=== PATIENT | male | born 2000 | race African-American/Black ===

== ENCOUNTER 2021-11-09 23:01 | Emergency (ER) | payer BC, SELFPAY ==
--- NOTE | ~2021-11-09 | CT_ITS ---
EXAMINATION: CT BRAIN W/O DATE: 11/10/2021 00:04 INDICATION: Status post fall with vomiting and nausea TECHNIQUE: Computed tomography (CT) of the head was performed without intravenous contrast. The dose- length product was 605.33 mGy-cm. Automated exposure control and iterative reconstruction technique w ere employed. COMPARISON: No prior studies for comparison. FINDINGS: Normal brain parenchymal volume for age. Normal corrales-white differentiation. No acute intrac ranial hemorrhage, infarction, mass or mass effect. Note is made of detector artifact. No ventriculomegaly or midline shift. Midline sagittal images demonstrate a normal corpus callosum, c raniovertebral junction and sella turcica. Basilar cisterns are patent. Paranasal sinuses and mastoids are pneumatized. No depressed skull fractures. IMPRESSION: 1. No acute intracranial abnormality. Reviewed, dictated and finalized at location A.
[2021-11-09 23:12] VITALS: BP 129/77; PULSE 79; RESP 18; TEMP 36.8; O2SAT 99
--- NOTE | 2021-11-09 23:28 | ED.GENADULT ---
HPI - General Adult General Chief complaint: Head Injury <FLOR Whitfield Last Filed: 11/10/21 01:45> Stated complaint: concussion <FLOR Whitfield Last Filed: 11/10/21 01:45> Time Seen by Provider: 11/09/21 23:13 <FLOR Whitfield Last Filed: 11/10/21 01:45> Source: patient <FLOR Whitfield Last Filed: 11/10/21 01:45> Mode of arrival: ambulatory <FLOR Whitfield Last Filed: 11/10/21 01:45> Limitations: no limitations <FLOR Whitfield Last Filed: 11/10/21 01:45> History of Present Illness HPI narrative: Patient is a 20-year-old male who presents the ED with report of headache. Patient reports he slipped and hit his head yesterday. He is unable to entirely recount how the fall occurred, but he does not believe he lost consciousness. Brother at bedside reports patient's girlfriend witnessed fall and they monitored him throughout the night last night. Patient has had a headache since the incident. He does have a history of migraines since he was a child. He usually takes Excedrin Migraine for these which alleviates his typical migraines. He did take this 2 hours prior to arrival with some relief of his current pain. He also reports having photophobia and phonophobia, but no vision changes, blurry vision, double vision. He did develop nausea and had several episodes of vomiting last night. He also reported having an episode of vomiting tonight, which prompted him to come to the ED. Patient denies any fever, confusion, weakness, chest pain, abdominal pain, SOB. <FLOR Whitfield Last Filed: 11/10/21 01:45> Related Data Home medications: Home Medications Medication Instructions Recorded Confirmed No Home Medications 11/10/21 11/10/21 <FLOR Whitfield Last Filed: 11/10/21 01:45> Allergies/adverse reactions: Allergies Allergy/AdvReac Type Severity Reaction Status Date / Time No Known Allergies Allergy Verified 11/10/21 00:09 <Marilin Larios PA-C - Last Filed: 11/10/21 01:45> Review of Systems Review of Systems: CONSTITUTIONAL: Denies fever, chills, or sweats. EYES: Reports photophobia. Denies visual changes - blurry, double. EARS: Reports phonophobia. CARDIOVASCULAR: Denies chest pain. RESPIRATORY: Denies cough or dyspnea. GASTROINTESTINAL: Reports nausea, vomiting. Denies abdominal pain or diarrhea. MUSCULOSKELETAL: Denies back pain, joint pain, or myalgia. NEUROLOGIC: Reports head injury, headache. Denies headache, numbness, confusion, or weakness. <Marilin Larios PA-C - Last Filed: 11/10/21 01:45> All systems reviewed & are unremarkable except as noted in HPI and below <Marilin Larios PA-C - Last Filed: 11/10/21 01:45> PMFSH Past Medical History Medical History: Medical History (Updated 11/10/21 @ 01:07 by Marilin Larios PA-C) Migraine <Marilin Larios PA-C - Last Filed: 11/10/21 01:45> Surgical History Surgical History: Surgical History (Updated 11/10/21 @ 00:49 by Marilin Larios PA-C) No pertinent past surgical history <Marilin Larios PA-C - Last Filed: 11/10/21 01:45> Social History Social History: Social History (Updated 11/10/21 @ 00:49 by Marilin Larios PA-C) Smoking status: Never smoker <Marilin Larios PA-C - Last Filed: 11/10/21 01:45> Exam Narrative: GENERAL: Well appearing, well-nourished, non-toxic, in no acute distress. HEAD: Normocephalic, atraumatic. No scalp tenderness to palpation. EYES: PERRL/EOMI, conjunctivae clear bilaterally. No raccoon eyes. No nystagmus. EARS: TMS clear, with good light reflex. No erythema or bulging. No signs of hemotympanum. No roberts sign. NECK: Supple. No adenopathy, no masses. Mild posterior paraspinal muscle tenderness bilaterally. No midline cervical spinal tenderness. RESPIRATORY: Airway patent, respirations nonlabored. Clear to auscultation bilaterally, no rales, rhonchi, wheezing. CARDIOVASCULAR: Regular r
[2021-11-10] MEDS: METOCLOPRAMIDE HCL INJ 10 MG/2 ML VIAL IV PUSH (00:19)
[2021-11-10] MEDS: SODIUM CHLORIDE 0.9% IV 1,000 ML 999 ML IV CONT (00:19)
[2021-11-10] MEDS: KETOROLAC 30 MG/ML VIAL (*BKC) IV PUSH (00:22)
[2021-11-10] MEDS: diphenhydrAMINE HCl INJ 50 MG/ML VIAL 25 MG IV PUSH (00:23)
[2021-11-10 00:26] VITALS: BP 136/91; PULSE 53; RESP 16; O2SAT 100
[2021-11-10 01:30] VITALS: BP 136/72; PULSE 55; RESP 12; TEMP 36.1; O2SAT 98
== END 2021-11-10 01:32 | disposition home or self-care (01) ==
PROVIDERS: Emergency Provider Emergency Medicine
DX: S06.0X0A Concussion without loss of consciousness, initial encounter (principal); R51.9 Headache, unspecified; W01.0XXA Fall on same level from slipping, tripping and stumbling without subsequent striking against object, initial encounter
CPT/HCPCS: 70450; 96361; 96374; 96375; 99284; J1200; J1885; J2765; J7030

== ENCOUNTER 2024-03-12 19:51 | Emergency (ER) | payer BC, SELFPAY ==
--- NOTE | ~2024-03-12 | CT_ITS ---
EXAMINATION: CT abdomen pelvis wo con DATE: 03/12/2024 21:35 INDICATION: Right flank pain radiating to the right lower quadrant on the right testis. TECHNIQUE: Computed tomography (CT) of the abdomen and pelvis was performed without intravenous contr ast. Automated exposure control and iterative reconstruction technique were employed. The dose-length product was 377.45 mGy-cm. COMPARISON: None FINDINGS: Lung bases are clear. Heart size is normal. No pericardial or pleural effusion. Focal hepatic steatos is along the ligamentum teres. Gallbladder, spleen, pancreas and bilateral adrenal glands are normal. Kidneys and ureters are normal with no urolithiasis, hydroureteronephrosis or perinephric/ureteral s tranding. Bladder is normal. Bowels including the appendix are normal. No free intraperitoneal gas or fluid. No pathologically enlarged abdominal or pelvic lymphadenopathy. 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 IMPRESSION: 1. No urolithiasis or acute intra-abdominal/pelvic process. 2. L5 spondylolysis with 4 mm anterolisthesis on S1. Reviewed, dictated and finalized at location A.
[2024-03-12 19:54] VITALS: BP 123/63; PULSE 48; RESP 16; TEMP 36.9; O2SAT 100
[2024-03-12 20:23] LABS: Appearance Urine Clear (Clear); Bacteria Urine None Seen /hpf; Bilirubin Urine Negative (Negative); Blood Urine Negative (Negative); Color Urine Yellow (Yellow); Glucose Urine UA Negative (Negative); Ketones Urine 1+ mg/dL (Negative); Leukocyte Esterase Ur Negative LEU/UL (Negative); Nitrate Urine Negative (Negative); Non Pathogenic Casts 0-2; Protein Urine 1+ mg/dL (Negative); RBC Urine 0-2 /hpf (0-2); Specific Grav Ur 1.011 (1.001-1.035); Squamous Epithelial Cell Urine None Seen /hpf (Few); WBC Urine 0-5 /hpf (0-3); pH Urine 5.5 (5.0-9.0)
[2024-03-12 20:29] LABS: Add Urine Microscopic? YES
[2024-03-12 21:12] LABS: Basophils Percent Auto 0.3 % (0.2-1.2); Eosinophils Percent Auto 0.2 % (0-4.4); Hematocrit 47.8 % (42.0-52.0); Hemoglobin 16.6 g/dL (14.0-18.0); Immature Granulocyte Absolute 0.04 K/mm3 (0.00-0.031); Immature Granulocyte Percent A 0.3 % (0-0.5); Lymphocytes Absolute Auto 2.54 K/mm3 (0.9-3.2); Lymphocytes Percent Auto 19.3 % (18.3-44.2); Mean Corpuscular HGB Conc 34.7 g/dl (32-36); Mean Corpuscular Hemoglobin 30.9 pg (26-34); Mean Platelet Volume 10.1 fl (7.4-10.4); Monocytes Absolute Auto 1.2 K/mm3 (0.1-0.6); Monocytes Percent Auto 8.8 % (2.6-8.5); Neutrophils Absolute Auto 9.4 K/mm3 (1.3-6.7); Neutrophils Percent Auto 71.1 % (45.5-73.1); Platelet Count Result 237 k/mm3 (150-375); Red Blood Count 5.37 M/mm3 (4.6-6.20); Red Cell Distribution Width 12.5 % (11.5-14.5); White Blood Count 13.2 K/mm3 (4.5-10.0)
[2024-03-12] MEDS: SODIUM CHLORIDE 0.9% IV 2,000 ML 999 ML IV CONT (21:13)
[2024-03-12] MEDS: ONDANSETRON INJ 4 MG/2 ML VIAL IV PUSH (21:15)
[2024-03-12] MEDS: HYDROmorphone HCL INJ (*CRX) 1 MG/ML SYR 0.5 MG IV PUSH (21:16)
[2024-03-12 21:21] LABS: Alanine Aminotransferase 14 U/L (6-50); Albumin Level 5.3 g/dL (3.5-5.1); Alkaline Phosphatase 66 U/L (38-126); Anion Gap 17 mmol/L (4-12); Aspartate Amino Transferase 27 U/L (17-59); Bilirubin,Total 1.1 mg/dL (0.2-1.3); Blood Urea Nitrogen 13 mg/dL (9-20); Calcium 9.8 mg/dL (8.4-10.2); Carbon Dioxide 25 mmol/L (22-30); Chloride 99 mmol/L (98-107); Estimated CRCL calculation 61 ml/min; Estimated Glomerular Filt Rate > 60; Glucose 102 mg/dL (65-110); Lipase 27 U/L (23-300); Potassium 3.3 mmol/L (3.4-5.0); Sodium 141 mmol/L (137-145)
[2024-03-12 22:43] VITALS: BP 125/72; PULSE 55; RESP 16; O2SAT 100
--- NOTE | 2024-03-12 23:19 | ED.GENADULT ---
HPI - General Adult General Chief complaint: Back Pain/Injury Stated complaint: back pain, testicle pain Time Seen by Provider: 03/12/24 20:07 History of Present Illness HPI narrative: This is a 23-year-old male presenting ED with a chief complaint of right flank pain. Pain has been on for several days. It is a dull pain in his back radiates the right lower quadrant right testicle. Associated with some nausea and vomiting but no diarrhea. No fevers chills chest pain breathing. No dysuria hematuria or concerns for STDs. No tenderness to the testicle. Related Data Allergies Allergy/AdvReac Type Severity Reaction Status Date / Time No Known Allergies Allergy Verified 03/12/24 19:58 PMFSH Past Medical History Medical History Migraine Surgical History Surgical History No pertinent past surgical history Social History Social History Smoking status: Never smoker Exam Narrative: APPEARANCE: No apparent distress. Head: atraumatic. EYES: EOMI, NOSE: Atraumatic NECK: Trachea midline RESPIRATORY: No increased rate of breathing CARDIOVASCULAR: RRR, ABDOMINAL: Non-distended MUSCULOSKELETAl: Abdomen is soft nontender with no guarding or rebound. No CVA tenderness. General exam: Normal external genitalia, no tenderness to the testicles, normal lie, cremasteric reflex intact NEURO: Alert. Moving 4/4 extremities SKIN:: Warm, dry. Normal color PSYCHIATRIC: Normal affect Course Vital Signs Vital signs: Vital Signs Temperature 98.5 F 03/12/24 19:54 Pulse Rate 48 L 03/12/24 19:54 Respiratory Rate 16 03/12/24 19:54 Blood Pressure 123/63 03/12/24 19:54 Pulse Oximetry 100 03/12/24 19:54 Oxygen Delivery Room Air 03/12/24 19:54 Temperature 98.5 F 03/12/24 19:54 Pulse Rate 55 L 03/12/24 22:43 Respiratory Rate 16 03/12/24 22:43 Blood Pressure 125/72 03/12/24 22:43 Pulse Oximetry 100 03/12/24 22:43 Oxygen Delivery Room Air 03/12/24 19:54 Medical Decision Making [facility] Narrative Medical decision making narrative: -Course: 23-year-old male presenting with flank pain radiating to his abdomen and testicle. Physical exam unremarkable. No abdominal tenderness flank pain or testicular tenderness. Mildly elevated white count. No evidence of infection. urine without blood or white blood cells.. CT abdomen pelvis without any findings. On re-evaluation patient is resting comfortably. Pain resolved. Vital signs are stable. Updated that his workup was negative. Discharged with primary care follow-up. Given return precautions. Patient had a vasovagal event while we are starting his IV. -DDX includes but is not limited to: Kidney stone, MSK pain, appendicitis, UTI testicular torsion, epididymitis, orchitis -Independent interpretation of studies: White count 13.2. Creatinine 1.6. No baseline in our system. This can be followed by primary care . Urine without blood or white blood cells per CT abdomen pelvis without a definitive cause of his pain. -Interventions: 2 L normal saline, 4 mg Zofran, 0.5 mg Dilaudid -Shared decision making / Disposition: Discharge -RX Motrin Tylenol Vital Signs Vital Signs: Vital Signs Temperature 98.5 F 03/12/24 19:54 Pulse Rate 48 L 03/12/24 19:54 Respiratory Rate 16 03/12/24 19:54 Blood Pressure 123/63 03/12/24 19:54 Pulse Oximetry 100 03/12/24 19:54 Oxygen Delivery Room Air 03/12/24 19:54 Temperature 98.5 F 03/12/24 19:54 Pulse Rate 55 L 03/12/24 22:43 Respiratory Rate 16 03/12/24 22:43 Blood Pressure 125/72 03/12/24 22:43 Pulse Oximetry 100 03/12/24 22:43 Oxygen Delivery Room Air 03/12/24 19:54 Lab Data 03/12/24 21:07 03/12/24 21:07 Labs: Lab Results 03/12/24 03/12/24 Range/Units 20:12 21:07
[2024-03-12 23:59] VITALS: BP 130/70; PULSE 44; RESP 15; O2SAT 100
== END 2024-03-12 23:59 | disposition home or self-care (01) ==
PROVIDERS: Emergency Provider Emergency Medicine
DX: R10.9 Unspecified abdominal pain (principal)
CPT/HCPCS: 36415; 74176; 80053; 81001; 83690; 85025; 96361; 96374; 96375; 99284; J1170; J2405; J7030